=== PATIENT | male | born 1995 | race Caucasian/White ===

== ENCOUNTER 2021-11-09 17:38 | Emergency (ER) | payer OTHER ==
[2021-11-09 18:23] LABS: Absolute Lymphocytes (CBC) 0.8 K/uL (0.7-4.9); Hematocrit 44.9 % (39.6-49.0); Lymphocytes % 7.9 % (15.3-44.8); MCV 86.8 fL (80-100); MPV 8.4 fL (7.6-11.3); RBC Red Blood Cell Count 5.17 M/uL (4.33-5.43)
[2021-11-09 18:31] LABS: Albumin 4.1 g/dL (3.4-5.0); Bilirubin Total 0.5 mg/dL (0.2-1.0); Potassium 3.3 mmol/L (3.5-5.1); Protein, Total 7.4 g/dL (6.4-8.2)
[2021-11-09] MEDS ORDERED: ONDANSETRON 4 MG/2 ML VIAL ONE (18:34)
[2021-11-09] MEDS ORDERED: KETOROLAC 30 MG/ML INJ ONE ×2 (18:34→20:06)
[2021-11-09 19:04] LABS: Urine Blood 3+ (Negative); Urine Glucose Negative (Negative); Urine Protein 1+ (Negative); Urine pH 5.5 (5.0-7.0)
--- NOTE | 2021-11-09 19:17 | RAD REPORT ---
EXAM DESCRIPTION: CT - Abdomen Pelvis Wo Contrast - 11/09/2021 7:03 pm CLINICAL HISTORY: Abdominal pain COMPARISON: None TECHNIQUE: Computed axial tomography of the abdomen and pelvis was obtained. IV and oral contrast we re not requested. All CT scans are performed using dose optimization technique as appropriate and may include automated exposure control or mA/KV adjustment according to patient size. FINDINGS: The evaluation of solid organs, vessels and bowel is limited secondary to the lack of con trast administration. Tiny bilateral renal calculi. Mild right hydronephrosis with perirenal stranding. A 4 millimeter calc ulus distal right ureter near the UVJ. The liver, spleen, pancreas and adrenals unremarkable. There is no evidence of diverticulitis. IMPRESSION: 4 millimeter calculus distal right ureter resulting in mild right hydronephrosis
--- NOTE | 2021-11-09 19:58 | ER ---
Nurse's Notes [facility] Name: Thanh Sauceda Age: 26 yrs Sex: Male : 1995 Arrival Date: 11/09/2021 Time: 17:44 Bed 8 Private MD: Diagnosis: Kidney stone;Right flank pain;Emesis;Hydronephrosis with renal and ureteral calculous obstruction-4 mm distal right urter, mild hydro Presentation: 11/09 17:57 Chief complaint: Patient states: Right flank pain, N/V x 1 day. Coronavirus screen: At [facility] this time, the client does not indicate any symptoms associated with coronavirus-19. Ebola Screen: No symptoms or risks identified at this time. Initial Sepsis Screen: Does the patient meet any 2 criteria? No. Patient's initial sepsis screen is negative. Does the patient have a suspected source of infection? No. Patient's initial sepsis screen is negative. Risk Assessment: Do you want to hurt yourself or someone else? Patient reports no desire to harm self or others. Onset of symptoms was November 08, 2021. Care prior to arrival: None. 17:57 Method Of Arrival: Ambulatory [facility] 17:57 Acuity: CALEB 3 jl7 Triage Assessment: 17:59 General: Appears in no apparent distress. uncomfortable, Behavior is calm, cooperative, jl7 appropriate for age. Pain: Complains of pain in right flank Pain radiates to right lower quadrant Pain currently is 5 out of 10 on a pain scale. GI: Reports nausea, vomiting. Historical: - Allergies: 17:59 No Known Allergies; [facility] - Home Meds: 17:59 None [Active]; jl7 - PMHx: 17:59 ADD/ADHD; 7 - PSHx: 17:59 Appendectomy; jl7 - Immunization history:: Client reports receiving the 2nd dose of the Covid vaccine. - Social history:: Smoking status: Patient denies any tobacco usage or history of. Screenin:06 Abuse screen: Denies threats or abuse. Denies injuries from another. eh3 18:06 Nutritional screening: No deficits noted. Tuberculosis screening: No symptoms or risk eh3 factors identified. Fall Risk None identified. Assessment: 18:07 GI: Abdomen is flat, non-distended, Reports lower abdominal pain, nausea, Pain is 5 out eh3 of 10 on a pain scale. Vital Signs: 17:57 BP 102 / 80; Pulse 110; Resp 17; Temp 98.4; Pulse Ox 96% on R/A; Weight 74.84 kg; jl7 Height 5 ft. 9 in. (175.26 cm); Pain 5/10; 18:42 BP 119 / 66; Pulse 88; Resp 12; Pulse Ox 98% on R/A; Pain 4/10; eh3 19:37 BP 123 / 83; Pulse 92; Resp 12; Pulse Ox 98% on R/A; Pain 0/10; eh3 17:57 Body Mass Index 24.37 (74.84 kg, 175.26 cm) jl7 ED Course: 17:44 Patient arrived in ED. am2 17:45 Maciej Frankel DO is Attending Physician. ms3 17:58 Triage completed. jl7 17:59 Arm band placed on right wrist. jl7 18:03 Initial lab(s) drawn, by nc, sent to lab. Inserted saline lock: 20 gauge in right dh3 forearm, using aseptic technique. Blood collected. 18:06 Patient has correct armband on for positive identification. Bed in low position. Call 3 light in reach. Side rails up X2. 18:38 Chely Alvarez, ABNER is Primary Nurse. ld1 19:03 Attending Physician role handed off by Maciej Frankel DO ms3 19:03 Vick Marte MD is Attending Physician. ms3 19:05 CT Abd/Pelvis - Without Contrast In Process Unspecified. EDMS 19:57 Piotr Braga MD is Referral Physician. ted 21:01 No provider procedures requiring assistance completed. IV discontinued, intact, eh3 bleeding controlled, No redness/swelling at site. Pressure dressing applied. Administered Medications: 18:41 Drug: Ketorolac 10 mg Route: IVP; Site: right antecubital; eh3 18:41 Drug: Zofran (Ondansetron) 4 mg Route: IVP; Site: right antecubital; eh3 20:09 Drug: NS 0.9% 1000 ml Route: IV; Rate: 1 bolus; Site: right wrist; ld1 20:09 Drug: Rocephin (cefTRIAXone) 1 grams Route: IV; Rate: per protocol; Site: right wrist; ld1 20:09 Drug: TORadol - (ketorolac) 15 mg Route: IVP; Site: right wrist; ld1 20:09 Drug: Flomax (tamsulosin) 0.4 mg Route: PO; ld1 Medication: 21:11 VIS not applicable for this client. 3 Outcome: 19:58 Discharge ordered by . ted 21:01 Discharged to home ambulatory. 3 21:01 Condition: stable 21:01 Discharge instructions given to patient, family, Instructed on discharge instructions, follow up and referral plans. medication usage, Demonstrated understanding of instructions, follow-up care, medications, Prescriptions given X 4. 21:12 Patient left the ED. 3 Signatures: Dispatcher [employer] EDMS Vick Marte MD MD cha Leal, Jahala RN RN jl7 Madeleine Lynn Deanna 3 Maciej Frankel DO DO ms3 Chely Alvarez RN RN ld1 Kaylan Hermosillo 3 Corrections: (The following items were deleted from the chart) 17:59 17:59 Allergies: Aspirin; magdalena nichols
--- NOTE | 2021-11-09 19:58 | EDPHYS ---
Physician Documentation [facility] Name: Thanh Sauceda Age: 26 yrs Sex: Male : 1995 Arrival Date: 11/09/2021 Time: 17:44 Bed 8 Private MD: ED Physician Vick Marte HPI: 11/09 18:19 This 26 yrs old Male presents to ER via Ambulatory with complaints of Flank Pain, ms3 Nausea/Vomiting. 18:19 The patient complains of pain in the right mid back. The pain does not radiate. Onset: ms3 The symptoms/episode began/occurred acutely, yesterday. Modifying factors: The symptoms are alleviated by nothing. the symptoms are aggravated by nothing. Associated signs and symptoms: The patient has no apparent associated signs or symptoms. Severity of pain: At its worst the pain was moderate in the emergency department the pain is unchanged. Historical: - Allergies: 17:59 No Known Allergies; jl7 - Home Meds: 17:59 None [Active]; jl7 - PMHx: 17:59 ADD/ADHD; jl7 - PSHx: 17:59 Appendectomy; jl7 - Immunization history:: Client reports receiving the 2nd dose of the Covid vaccine. - Social history:: Smoking status: Patient denies any tobacco usage or history of. ROS: 18:19 Constitutional: Negative for fever, and chills. ENT: Negative for injury, pain, and ms3 discharge, Neck: Negative for injury, pain, and swelling, Cardiovascular: Negative for chest pain, and palpitations. Respiratory: Negative for shortness of breath, cough, wheezing, and pleuritic chest pain. 18:19 Neuro: Negative for headache, weakness, numbness, tingling. Psych: Negative for depression, anxiety, suicide ideation, homicidal ideation, and hallucinations. 18:19 Abdomen/GI: Positive for Right flank pain. Exam: 18:19 Constitutional: This is a well developed, well nourished patient who is awake, alert, ms3 and in no acute distress. Eyes: Pupils equal round and reactive to light, extra-ocular motions intact. Lids and lashes normal. Conjunctiva and sclera are non-icteric and not injected. Periorbital areas with no swelling, redness, or edema. Neck: Trachea midline, no cervical lymphadenopathy. Supple, full range of motion without nuchal rigidity, or vertebral point tenderness. No Meningismus. Chest/axilla: Normal chest wall appearance and motion. Nontender with no deformity. Cardiovascular: Regular rate and rhythm with a normal S1 and S2. No gallops, murmurs, or rubs. Normal PMI, no JVD. No pulse deficits. Respiratory: Lungs have equal breath sounds bilaterally, clear to auscultation and percussion. No rales, rhonchi or wheezes noted. No increased work of breathing, no retractions or nasal flaring. Abdomen/GI: Soft, non-tender, with normal bowel sounds. No distension or tympany. No guarding or rebound. No evidence of tenderness throughout. Skin: Warm, dry with normal turgor. Normal color with no rashes, no lesions, and no evidence of cellulitis. MS/ Extremity: Pulses equal, no cyanosis. Neurovascular intact. Full, normal range of motion. Psych: Awake, alert, with orientation to person, place and time. Behavior, mood, and affect are within normal limits. 18:19 Back: CVA tenderness, that is moderate, is noted on the right. Vital Signs: 17:57 BP 102 / 80; Pulse 110; Resp 17; Temp 98.4; Pulse Ox 96% on R/A; Weight 74.84 kg; jl7 Height 5 ft. 9 in. (175.26 cm); Pain 5/10; 18:42 BP 119 / 66; Pulse 88; Resp 12; Pulse Ox 98% on R/A; Pain 4/10; eh3 19:37 BP 123 / 83; Pulse 92; Resp 12; Pulse Ox 98% on R/A; Pain 0/10; eh3 17:57 Body Mass Index 24.37 (74.84 kg, 175.26 cm) jl7 MDM: 18:07 Patient medically screened. ms3 19:02 Transition of care: After a detail discussion of the patient's case, care is ms3 transferred to Vick Marte MD. 19:55 Differential diagnosis: nephrolithiasis, UTI. Data reviewed: vital signs, nurses notes, ted lab test result(s), radiologic studies, CT scan. Data interpreted: surveillance system monitor: rate is 92 beats/min, rhythm is regular, Pulse oximetry: on room air is 98 %. Counseling: I had a detailed discussion with the patient and/or guardian regarding: the historical points, exam findings, and any diagnostic results supporting the discharge/admit diagnosis, lab results, radiology results. 11/09 18:04 Order name: CBC with Diff; Complete Time: 18:40 ld1 11/09 18:04 Order name: CMP; Complete Time: 18:40 ld1 11/09 18:04 Order name: Lipase; Complete Time: 18:40 ld1 11/09 18:07 Order name: CT Abd/Pelvis - Without Contrast; Complete Time: 19:53 ms3 11/09 19:05 Order name: Urine Dipstick-Ancillary; Complete Time: 19:53 EDMS 11/09 18:04 Order name: IV Saline Lock; Complete Time: 18:05 ld1 11/09 18:04 Order name: Labs collected and sent; Complete Time: 18:05 ld1 11/09 18:04 Order name: Urine Dipstick-Ancillary (obtain specimen); Complete Time: 18:43 ld1 Administered Medications: 18:41 Drug: Ketorolac 10 mg Route: IVP; Site: right antecubital; eh3 18:41 Drug: Zofran (Ondansetron) 4 mg Route: IVP; Site: right antecubital; eh3 20:09 Drug: NS 0.9% 1000 ml Route: IV; Rate: 1 bolus; Site: right wrist; ld1 20:09 Drug: Rocephin (cefTRIAXone) 1 grams Route: IV; Rate: per protocol; Site: right wrist; ld1 20:09 Drug: TORadol - (ketorolac) 15 mg Route: IVP; Site: right wrist; ld1 20:09 Drug: Flomax (tamsulosin) 0.4 mg Route: PO; ld1 Disposition Summary: 11/09/21 19:58 Discharge Ordered Location: Home ted Problem: new ted Symptoms: are unchanged ted Condition: Stable ted Diagnosis - Kidney stone ted - Right flank pain ted - Emesis ted - Hydronephrosis with renal and ureteral calculous obstruction - 4 mm distal right ted urter, mild hydro Followup: ms3 - With: - When: 2 - 3 days - Reason: Re-evaluation by your physician Followup: ld1 - With: Private Physician - When: 2 - 3 days - Reason: Recheck today's complaints, Continuance of care, Re-evaluation by your physician Discharge Instructions: - Discharge Summary Sheet ms3 - Kidney Stones ms3 Forms: - Medication Reconciliation Form ted - Thank You Letter ted - Antibiotic Education [facility] - Prescription Opioid Use [facility] Prescriptions: - Tylenol-Codeine #3 300 mg-30 mg Oral - take 2 tablets by ORAL route every 6 hours; 24 tablet; Refills: 0, Product [facility] Selection Permitted - Zofran 4 mg Oral Tablet - take 1 tablet by ORAL route every 12 hours As needed; 20 tablet; Refills: 0, [facility] Product Selection Permitted - Cipro 500 mg Oral Tablet - take 1 tablet by ORAL route every 12 hours for 7 days; 14 tablet; Refills: 0, [facility] Product Selection Permitted - Flomax 0.4 mg Oral capsule - take 1 capsule by ORAL route once daily 1/2 hour following the same meal each [facility] day; 30 capsule; Refills: 0, Product Selection Permitted Signatures: Dispatcher [employer] Vick Dupree MD MD cha Leal, Jahala RN RN jl7 Maciej Frankel DO DO ms3 Chely Alvarez RN RN ld1 Kaylan Hermosillo 3 Corrections: (The following items were deleted from the chart) 17:59 17:59 Allergies: Aspirin; magdalena nichols
[2021-11-09] MEDS ORDERED: TAMSULOSIN 0.4 MG SR CAP ONE (20:06)
[2021-11-09] MEDS ORDERED: NA CHLORIDE 0.9% 1,000 ML ONE (20:06)
[2021-11-09] MEDS ORDERED: CEFTRIAXONE 1000 MG/VIAL ONE (20:07)
[2021-11-09 21:50] VITALS: TEMP 98.4
[2021-11-09 21:52] VITALS: O2SAT 98
[2021-11-09 21:53] VITALS: BP 123/83
== END 2021-11-09 21:12 | disposition home or self-care (01) ==
LOC: ER 17:38
DX: N13.2 Hydronephrosis with renal and ureteral calculous obstruction (principal); R11.10 Vomiting, unspecified
CPT/HCPCS: 85025; 36415; 81003; 83690; 80053; 74176; J7030; J2405

== ENCOUNTER 2022-07-14 16:02 | Emergency (ER) | payer OTHER ==
[2022-07-14 17:10] LABS: Hematocrit 42.2 % (39.6-49.0); Lymphocytes % 25.1 % (15.3-44.8); MCV 87.4 fL (80-100); MPV 7.9 fL (7.6-11.3); RBC Red Blood Cell Count 4.83 M/uL (4.33-5.43)
[2022-07-14 17:29] LABS: Albumin 4.2 g/dL (3.4-5.0); Bilirubin Total 0.4 mg/dL (0.2-1.0); Potassium 3.8 mmol/L (3.5-5.1)
[2022-07-14 18:19] LABS: Urine Blood Negative (Negative); Urine Glucose Negative (Negative); Urine Protein Negative (Negative); Urine Specific Gravity >=1.030 (1.005-1.030); Urine pH 5.5 (5.0-7.0)
--- NOTE | 2022-07-14 18:33 | RAD REPORT ---
EXAM DESCRIPTION: CTAbdomen Pelvis W Contrast - 07/14/2022 6:28 pm CLINICAL HISTORY: Abdominal pain. EPIGASTRIC PAIN COMPARISON: No comparisons TECHNIQUE: Biphasic CT imaging of the abdomen and pelvis was performed with 100 ml non-ionic IV cont rast. All CT scans are performed using dose optimization technique as appropriate and may include automated exposure control or mA/KV adjustment according to patient size. FINDINGS: The lung bases are clear. The liver, spleen, pancreas, adrenal glands and kidneys are within normal limits. Small calculus infe rior calyx right kidney. No bowel obstruction, free air, free fluid or abscess. Moderate retained stool throughout the colon. Nonvisualized appendix. No evidence of significant lymphadenopathy. No suspicious bony findings. IMPRESSION: Moderate stool retained throughout the colon. Small right renal calculus without hydronephrosis.
[2022-07-14 20:43] VITALS: TEMP 97.1
[2022-07-14 20:44] VITALS: BP 122/81; O2SAT 99
--- NOTE | 2022-07-26 17:04 | EDPHYS ---
Physician Documentation [facility] Name: Thanh Sauceda Age: 26 yrs Sex: Male : 1995 Arrival Date: 07/14/2022 Time: 16:03 Bed 11 Private MD: ED Physician Teddy Patricio HPI: 07/14 16:37 This 26 yrs old Male presents to ER via Ambulatory with complaints of Abdominal Pain. jmm 16:37 The patient presents with abdominal pain. Onset: The symptoms/episode began/occurred jmm gradually. Onset: The symptoms/episode began/occurred 1 day(s) ago. The symptoms do not radiate. Is a 26-year-old male with history of ADHD, kidney stones the presents emerged part with complaints of epigastric abdominal pain nausea. Patient is concerned he may have an obstruction. Denies fever, denies diarrhea.. Historical: - PMHx: 16:42 ADD/ADHD; Kidney stone; kr3 - PSHx: 16:42 Appendectomy; kr3 - Immunization history:: Adult Immunizations not up to date. - Social history:: Smoking status: Patient denies any tobacco usage or history of. ROS: 16:37 Constitutional: Negative for fever, chills, and weight loss, Cardiovascular: Negative jmm for chest pain, palpitations, and edema, Respiratory: Negative for shortness of breath, cough, wheezing, and pleuritic chest pain. 16:37 Abdomen/GI: Positive for abdominal pain. 16:37 All other systems are negative. Exam: 16:37 Constitutional: This is a well developed, well nourished patient who is awake, alert, jmm and in no acute distress. Head/Face: atraumatic. Eyes: EOMI, no conjunctival erythema appreciated ENT: Moist Mucus Membranes Neck: Trachea midline, Supple Chest/axilla: Normal chest wall appearance and motion. Cardiovascular: Regular rate and rhythm. No edema appreciated Respiratory: Normal respirations, no respiratory distress appreciated Abdomen/GI: Non distended Back: Normal ROM Skin: General appearance color normal MS/ Extremity: Moves all extremities, no obvious deformities appreciated, no edema noted to the lower extremities Neuro: Awake and alert Psych: Behavior is normal, Mood is normal, Patient is cooperative and pleasant Vital Signs: 16:39 BP 114 / 75; Pulse 78; Resp 17; Temp 97.1; Pulse Ox 98% on R/A; Weight 74.84 kg; Height kr3 5 ft. 10 in. ; Pain 3/10; 18:08 BP 122 / 81; Pulse 74; Resp 17; Pulse Ox 99% ; mb9 16:39 Body Mass Index 23.67 (74.84 kg, 177.8 cm) kr3 16:39 Pain Scale: Adult kr3 MDM: 16:37 Patient medically screened. [facility] 19:15 Differential diagnosis: diverticulitis, gastroesophageal reflux disease, non-specific jmm abd pain, pancreatitis, Peptic Ulcer Disease. Data reviewed: vital signs, nurses notes. I considered the following discharge prescriptions or medication management in the emergency department Medications were administered in the Emergency Department. See MAR. I considered the following discharge prescriptions or medication management in the emergency department. Counseling: I had a detailed discussion with the patient and/or guardian regarding: the historical points, exam findings, and any diagnostic results supporting the discharge/admit diagnosis, lab results, radiology results, the need for outpatient follow up, to return to the emergency department if symptoms worsen or persist or if there are any questions or concerns that arise at home. 07/14 16:51 Order name: CBC with Diff; Complete Time: 17:15 [facility] 07/14 16:51 Order name: CMP; Complete Time: 17:32 [facility] 07/14 16:51 Order name: Lipase; Complete Time: 17:32 [facility] 07/14 18:19 Order name: Urine Dipstick-Ancillary; Complete Time: 18:20 [facility] 07/14 16:51 Order name: CT Abd/Pelvis - IV Contrast Only; Complete Time: 18:46 [facility] 07/14 16:51 Order name: IV Saline Lock; Complete Time: 17:06 [facility] 07/14 16:51 Order name: Labs collected and sent; Complete Time: 17:06 [facility] 07/14 17:14 Order name: Urine Dipstick-Ancillary (obtain specimen); Complete Time: 18:19 [facility] Administered Medications: No medications were administered Disposition Summary: 07/14/22 19:17 Discharge Ordered Location: Home [facility] Condition: Stable [facility] Diagnosis - Epigastric pain [facility] Followup: [facility] - With: Private Physician - When: 2 - 3 days - Reason: Recheck today's complaints, Continuance of care, Re-evaluation by your physician Followup: jmm - With: Phuc Kwan MD - When: 2 - 3 days - Reason: Recheck today's complaints, Continuance of care, Re-evaluation by your physician Discharge Instructions: - Discharge Summary Sheet jm - Abdominal Pain, Adult jm Forms: - Medication Reconciliation Form [facility] - Thank You Letter angie - Antibiotic Education [facility] - Prescription Opioid Use [facility] Addendum: 07/19/2022 08:02 Co-signature as Attending Physician, Teddy Patricio MD I reviewed the patient's care r t provided by the Advanced Practice Provider and agree with the diagnosis and treatment plan. Signatures: Dispatcher [employer] EDMS Abner Faulkner PA PA jmm Reid, Kelley RN RN kr3 Teddy Patricio MD MD rt Corrections: (The following items were deleted from the chart) 07/14 16:43 16:42 PSHx: kidney stones; kr3 kr3
--- NOTE | 2022-07-26 17:04 | ER ---
Nurse's Notes [facility] Name: Thanh Sauceda Age: 26 yrs Sex: Male : 1995 Arrival Date: 07/14/2022 Time: 16:03 Bed 11 Private MD: Diagnosis: Epigastric pain Presentation: 07/14 16:39 Chief complaint: Patient states: abdominal pain that feels like it rolls and then a kr3 really sharp pain, denies N/V/D, took laxative thinking I was constipated but it did not give me relief. Coronavirus screen: Vaccine status: Patient reports receiving the 2nd dose of the covid vaccine. Ebola Screen: Patient denies travel to an Ebola-affected area in the 21 days before illness onset. Initial Sepsis Screen: Does the patient meet any 2 criteria? No. Patient's initial sepsis screen is negative. Does the patient have a suspected source of infection? No. Patient's initial sepsis screen is negative. Risk Assessment: Do you want to hurt yourself or someone else? Patient reports no desire to harm self or others. Onset of symptoms was July 13, 2022. 16:39 Method Of Arrival: Ambulatory kr3 16:39 Acuity: CALEB 3 kr3 Triage Assessment: 16:43 General: Appears in no apparent distress. comfortable, Behavior is calm, cooperative, kr3 appropriate for age. Pain: Complains of pain in abdomen. EENT: No deficits noted. Neuro: Level of Consciousness is awake, alert, obeys commands, Oriented to person, place, time, situation. Cardiovascular: No deficits noted. Respiratory: No deficits noted. GI: Reports cramping. : No signs and/or symptoms were reported regarding the genitourinary system. Derm: No signs and/or symptoms reported regarding the dermatologic system. Musculoskeletal: No signs and/or symptoms reported regarding the musculoskeletal system. Historical: - PMHx: 16:42 ADD/ADHD; Kidney stone; kr3 - PSHx: 16:42 Appendectomy; kr3 - Immunization history:: Adult Immunizations not up to date. - Social history:: Smoking status: Patient denies any tobacco usage or history of. Screenin:07 [facility] ED Fall Risk Assessment (Adult) History of falling in the last 3 months, mb9 including since admission No falls in past 3 months (0 pts) Confusion or Disorientation No (0 pts) Intoxicated or Sedated No (0 pts) Impaired Gait No (0 pts) Mobility Assist Device Used No (0 pt) Altered Elimination No (0 pt) Score/Fall Risk Level 0 - 2 = Low Risk Oriented to surroundings, Maintained a safe environment, Educated pt \T\ family on fall prevention, incl call for assistance when getting out of bed. Abuse screen: Denies threats or abuse. Nutritional screening: No deficits noted. Tuberculosis screening: No symptoms or risk factors identified. Assessment: 17:07 General: Appears in no apparent distress. comfortable, Behavior is calm, cooperative, mb9 appropriate for age. Pain: Complains of pain in abdomen Pain currently is 8 out of 10 on a pain scale. Quality of pain is described as throbbing, Aggravated by eating. Neuro: Level of Consciousness is awake, alert, obeys commands, Oriented to person, place, time, situation, Appropriate for age. Cardiovascular: Capillary refill < 3 seconds is brisk Rhythm is regular. Respiratory: Airway is patent Respiratory effort is even, unlabored, Respiratory pattern is regular, symmetrical. GI: Abdomen is round non-distended, Bowel sounds present X 4 quads. Abd is soft and non tender X 4 quads. Patient currently denies diarrhea, nausea. Derm: Skin is pink, warm \T\ dry. Musculoskeletal: Range of motion: intact in all extremities. 18:08 Reassessment: No changes from previously documented assessment. Patient and/or family mb9 updated on plan of care and expected duration. Pain level reassessed. Patient is alert, oriented x 3, equal unlabored respirations, skin warm/dry/pink. 18:26 Reassessment: pt taken to CT via wheelchair. mb9 19:52 Reassessment: Patient is alert, oriented x 3, equal unlabored respirations, skin bb warm/dry/pink. pt verbalized understanding of and agrees to plan of care discharge instructions given pt ambulated with steady gait to exit. Vital Signs: 16:39 BP 114 / 75; Pulse 78; Resp 17; Temp 97.1; Pulse Ox 98% on R/A; Weight 74.84 kg; Height kr3 5 ft. 10 in. ; Pain 3/10; 18:08 BP 122 / 81; Pulse 74; Resp 17; Pulse Ox 99% ; mb9 16:39 Body Mass Index 23.67 (74.84 kg, 177.8 cm) kr3 16:39 Pain Scale: Adult kr3 ED Course: 16:03 Patient arrived in ED. am2 16:21 Abner Faulkner PA is PHCP. jmm 16:21 Teddy Patricio MD is Attending Physician. jmm 16:42 Triage completed. kr3 16:44 Arm band placed on right wrist. kr3 16:57 Bonny Sandoval, RN is Primary Nurse. mb9 17:06 Placed in gown. Bed in low position. Call light in reach. Side rails up X 1. Client mb9 placed on continuous cardiac and pulse oximetry monitoring. NIBP monitoring applied. 17:06 CBC with Diff Sent. mb9 17:06 CMP Sent. mb9 17:06 Lipase Sent. mb9 17:06 No provider procedures requiring assistance completed. Inserted saline lock: 20 gauge mb9 in right antecubital area, using aseptic technique. Blood collected. 18:29 CT Abd/Pelvis - IV Contrast Only In Process Unspecified. EDMS 19:16 Phuc Kwan MD is Referral Physician. m 19:53 IV discontinued, intact, bleeding controlled, No redness/swelling at site. Pressure bb dressing applied. Administered Medications: No medications were administered Medication: 17:06 VIS not applicable for this client. mb9 Outcome: 19:17 Discharge ordered by . m 19:53 Discharged to home ambulatory. bb 19:53 Condition: stable 19:53 Discharge instructions given to patient, Instructed on discharge instructions, follow up and referral plans. Demonstrated understanding of instructions, follow-up care. 19:53 Patient left the ED. bb Signatures: Dispatcher [employer] EDMS Abner Faulkner PA PA jmm Ballard, Brenda, RN RN Madeleine Napoles am2 Ivania Leon RN RN [email or web address] Bonny Sandoval, RN RN [email or web address] Corrections: (The following items were deleted from the chart) 16:43 16:42 PSHx: kidney stones; kr3 kr3
== END 2022-07-14 19:53 | disposition home or self-care (01) ==
LOC: ER 16:02
DX: R10.13 Epigastric pain (principal); Z87.442 Personal history of urinary calculi
CPT/HCPCS: 85025; 36415; 81003; 83690; 80053; 74177; 99283; Q9967

== ENCOUNTER 2024-12-18 16:54 | Emergency (ER) | payer OTHER ==
[2024-12-18] MEDS ORDERED: IBUPROFEN 400 MG TAB ONE (17:18)
[2024-12-18] MEDS ORDERED: ACETAMINOPHEN 500 MG TAB ONE (17:18)
[2024-12-18] MEDS ORDERED: LIDOCAINE 2% INJ, 20 mL 20 ML ONE (17:19)
[2024-12-18] MEDS ORDERED: TDAP (DIPHTH,PERTUSS(ACELL),TET VAC) 0.5 ML VIAL IMVAC ONE (17:29)
[2024-12-18] MEDS ORDERED: LIDOCAINE 2% W/EPI 1:200,000 MPF 20 ML VIAL IM ONE (18:35)
--- NOTE | 2024-12-18 18:56 | RAD REPORT ---
Exam:Knee Left 3 View HISTORY: Left knee pain FINDINGS: No fracture or dislocation seen Laceration involves the anterior inferior aspect of the knee. If clinically indicated MRI could be ob tained to assess for patellar tendon injury.
--- NOTE | 2024-12-18 19:07 | ER ---
Nurse's Notes [facility] Name: Thanh Sauceda Age: 29 yrs Sex: Male : 1995 Arrival Date: 12/18/2024 Time: 16:54 Bed 11 Private MD: Diagnosis: Laceration without foreign body of knee-left Presentation: 12/18 16:59 Chief complaint: Patient states: C/O laceration to left knee. Patient states he fell on ar8 asphalt \R\20 minutes ago. Coronavirus screen: At this time, the client does not indicate any symptoms associated with coronavirus-19. Ebola Screen: No symptoms or risks identified at this time. Initial Sepsis Screen: Does the patient meet any 2 criteria? No. Patient's initial sepsis screen is negative. Does the patient have a suspected source of infection? No. Patient's initial sepsis screen is negative. Risk Assessment: Do you want to hurt yourself or someone else? Patient reports no desire to harm self or others. Onset of symptoms was December 18, 2024 at 16:45. 16:59 Method Of Arrival: Wheelchair ar8 16:59 Acuity: CALEB 3 ar8 Triage Assessment: 17:01 General: Appears in no apparent distress. Behavior is calm, cooperative. Pain: ar8 Complains of pain in left knee. Musculoskeletal: Reports pain in left knee. Injury Description: Laceration sustained to left knee is jagged, not bleeding, was sustained less than 30 minutes ago. a small amount of bleeding noted at this time. Historical: - Allergies: 17:01 No Known Allergies; ar8 - Home Meds: 17:01 None [Active]; ar8 - PMHx: 17:01 ADD/ADHD; Kidney stone; ar8 - PSHx: 17:01 Appendectomy; ar8 - Immunization history:: Last tetanus immunization: unknown. - Infectious Disease History:: Denies. - Social history:: Smoking status: Patient denies any tobacco usage or history of. Screenin:42 Abuse screen: Denies threats or abuse. Denies injuries from another. Nutritional ss screening: No deficits noted. Tuberculosis screening: Never had TB. Assessment: 17:42 General: Appears in no apparent distress. comfortable, Behavior is calm, cooperative, ss Denies fever, feeling ill. Pain: Complains of pain in left knee Pain currently is 2 out of 10 on a pain scale. Quality of pain is described as tender. Neuro: Level of Consciousness is awake, alert, obeys commands, Oriented to person, place, time, situation, Speech is normal, Facial symmetry appears normal. Respiratory: Airway is patent Respiratory effort is even, labored, Respiratory pattern is regular, symmetrical. GI: No signs and/or symptoms were reported involving the gastrointestinal system. Derm: Skin is intact, is healthy with good turgor, Skin is pink, warm \T\ dry. normal. Injury Description: Laceration sustained to left knee is clean, 0.5 to 2.5 cm long, was sustained 30-60 minutes ago. no active bleeding noted at this time. 18:42 Reassessment: Patient appears in no apparent distress at this time. Patient is alert, ss oriented x 3, equal unlabored respirations, skin warm/dry/pink. CLEMENT Hickman at bedside for laceration repair. Vital Signs: 16:59 BP 126 / 89; Pulse 82; Resp 18; Temp 97.4; Pulse Ox 97% ; Weight 74.84 kg; Height 5 ft. ar8 9 in. ; Pain 4/10; 16:59 Body Mass Index 24.37 (74.84 kg, 175.26 cm) ar8 16:59 Pain Scale: Adult ar8 ED Course: 16:57 Patient arrived in ED. im 17:01 Triage completed. ar8 17:01 Arm band placed on right wrist. ar8 17:02 Vick Summers PA is PHCP. cp 17:02 Deysi Flores MD is Attending Physician. cp 17:38 Candy Goodson, ABNER is Primary Nurse. ss 17:42 Patient has correct armband on for positive identification. Bed in low position. Call ss light in reach. 17:42 Wound care: to laceration located on left knee was cleaned with soap and water, Patient ss tolerated well. 18:31 XRAY Knee LEFT 3 view In Process Unspecified. EDMS 18:43 Assist provider with laceration repair on left knee that was 2.5 cm. or less using ss sutures. Set up tray. Performed by Vick VAUGHAN Patient tolerated well. Patient did not have IV access during this emergency room visit. Administered Medications: 17:38 Drug: Boostrix Tdap IM 0.5 ml IM once; as a single dose {Note: 37R35 02/22/27.} Route: ss IM; Site: left deltoid; 18:42 Follow up: Response: No adverse reaction ss 17:41 Drug: Ibuprofen PO 800 mg PO once Route: PO; ss 18:42 Follow up: Response: No adverse reaction ss 17:41 Drug: Acetaminophen PO 1000 mg PO once Route: PO; ss 18:42 Follow up: Response: No adverse reaction ss 18:42 Not Given (Other Intervention Used): lidocaine(2 %) 10 ml 5 ml Infiltration once; with ss epinephrine 18:42 Drug: Lidocaine-Epinephrine Infiltration -2 % (1:100,000) 10 ml Infiltration once; to bedside {Note: to L knee by CLEMENT Edwards.} Route: Infiltration; 19:44 Drug: Cephalexin PO 500 mg PO once Route: PO; br2 19:52 Follow up: Response: Medication administered at discharge. br2 Medication: 17:42 Vaccine Information Statement (VIS) provided today. Questions and/or concerns ss addressed. VIS edition date: December 2020. Outcome: 19:07 Discharge ordered by . benito 19:52 Discharged to home ambulatory, br2 19:52 Condition: stable 19:52 Discharge instructions given to patient, Instructed on discharge instructions, follow up and referral plans. Demonstrated understanding of instructions, follow-up care, medications, Prescriptions given X 2, 19:53 Patient left the ED. br2 Signatures: Dispatcher [employer] EDMS Candy Goodson RN RN ss Page, Corey, PA-C PAAndrewC Lynn Haywood Belinda, RN RN br2 Augustin Brantley RN RN ar8
--- NOTE | 2024-12-18 19:07 | EDPHYS ---
Physician Documentation [facility] Name: Thanh Sauceda Age: 29 yrs Sex: Male : 1995 Arrival Date: 12/18/2024 Time: 16:54 Bed 11 Private MD: ED Physician Deysi Flores HPI: 12/18 17:25 This 29 yrs old Male presents to ER via Wheelchair with complaints of Knee Injury. cp Historical: - Allergies: 17:01 No Known Allergies; ar8 - Home Meds: 17:01 None [Active]; ar8 - PMHx: 17:01 ADD/ADHD; Kidney stone; ar8 - PSHx: 17:01 Appendectomy; ar8 - Immunization history:: Last tetanus immunization: unknown. - Infectious Disease History:: Denies. - Social history:: Smoking status: Patient denies any tobacco usage or history of. ROS: 17:30 MS/extremity: Positive for laceration, pain, tenderness, of the anterior aspect left cp knee below patella, 17:30 Constitutional: Negative for body aches, chills, fever, cp 17:30 Neck: Negative for pain with movement, pain at rest, 17:30 Cardiovascular: Negative for chest pain, 17:30 Respiratory: Negative for cough, shortness of breath, wheezing, 17:30 Abdomen/GI: Negative for abdominal pain, vomiting, diarrhea, constipation, 17:30 Back: Negative for pain at rest, pain with movement, 17:30 Neuro: Negative for headache, numbness, weakness, 17:30 All other systems are negative, Exam: 17:35 Constitutional: The patient appears in no acute distress, alert, awake, cp non-diaphoretic, non-toxic, well developed, well nourished, 17:35 Head/Face: Normocephalic, atraumatic. cp 17:35 Neck: ROM/movement: is normal, is supple, without pain, no range of motions limitations, 17:35 Chest/axilla: Inspection: normal, 17:35 Cardiovascular: Rate: normal, 17:35 Respiratory: the patient does not display signs of respiratory distress, Respirations: normal, no use of accessory muscles, no retractions, 17:35 Abdomen/GI: Inspection: abdomen appears normal, 17:35 Back: pain, is absent, ROM is normal, 17:35 Musculoskeletal/extremity: Extremities: noted in the left knee: laceration anterior left knee below patella, mild bleeding, tendon sheath exposed with no signs injury, full AROM left knee, Vital Signs: 16:59 BP 126 / 89; Pulse 82; Resp 18; Temp 97.4; Pulse Ox 97% ; Weight 74.84 kg; Height 5 ft. ar8 9 in. ; Pain 4/10; 16:59 Body Mass Index 24.37 (74.84 kg, 175.26 cm) ar8 16:59 Pain Scale: Adult ar8 Laceration: 19:05 Wound Repair of 4.5cm ( 1.8in ) subcutaneous laceration to anterior left knee. Linear cp shaped.. Distal neuro/vascular/tendon intact. Anesthesia: Wound infiltrated with 8 mls of 2% lidocaine. Wound prep: Moderate cleansing by me, Wound irrigation by me. Skin closed with 1 4-0 Prolene using running sutures. Dressed with Bacitracin, 4x4's. Patient tolerated well. MDM: 17:16 Medical Screening Exam initiated 18:00 Differential diagnosis: dislocation, open fracture, contusion, tendon rupture. 18:31 Independent interpretation of the following test(s) in the Emergency Department X-Ray: My interpretation is images of left knee negative for fracture. 19:06 Data reviewed: vital signs, nurses notes, radiologic studies, plain films, and as a cp result, I will discharge patient. 19:07 I considered the following discharge prescriptions or medication management in the emergency department Medications were administered in the Emergency Department. See MAR. 19:07 Counseling: I had a detailed discussion with the patient and/or guardian regarding the historical points, exam findings, and any diagnostic results supporting the discharge/admit diagnosis, radiology results, to return to the emergency department if symptoms worsen or persist or if there are any questions or concerns that arise at home. Response to treatment: the patient's symptoms have markedly improved after treatment, and as a result, I will discharge patient. 12/18 17:20 Order name: XRAY Knee LEFT 3 view; Complete Time: 19:04 cp 12/18 19:04 Interpretation: Report reviewed. 12/18 17:20 Order name: Gloves, Sterile; Complete Time: 17:41 12/18 17:20 Order name: Setup Suture Tray; Complete Time: 17:41 cp Administered Medications: 17:38 Drug: Boostrix Tdap IM 0.5 ml IM once; as a single dose {Note: 37R35 02/22/27.} Route: ss IM; Site: left deltoid; 18:42 Follow up: Response: No adverse reaction ss 17:41 Drug: Ibuprofen PO 800 mg PO once Route: PO; ss 18:42 Follow up: Response: No adverse reaction ss 17:41 Drug: Acetaminophen PO 1000 mg PO once Route: PO; ss 18:42 Follow up: Response: No adverse reaction ss 18:42 Not Given (Other Intervention Used): lidocaine(2 %) 10 ml 5 ml Infiltration once; with ss epinephrine 18:42 Drug: Lidocaine-Epinephrine Infiltration -2 % (1:100,000) 10 ml Infiltration once; to ss bedside {Note: to L knee by PA. Grace} Route: Infiltration; 19:44 Drug: Cephalexin PO 500 mg PO once Route: PO; br2 19:52 Follow up: Response: Medication administered at discharge. br2 Disposition: 12/19 18:14 Chart complete. cp Disposition Summary: 12/18/24 19:07 Discharge Ordered Notes: Location: Home cp Problem: new cp Symptoms: have improved cp Condition: Stable cp Diagnosis - Laceration without foreign body of knee - left cp Followup: cp - With: Private Physician - When: 10 - 14 days - Reason: Staple/Suture removal Discharge Instructions: - Discharge Summary Sheet cp - Laceration Care, Adult cp - Form - Excuse from Work, School, or Physical Activity dd2 Forms: - Medication Reconciliation Form cp - Antibiotic Education cp - Prescription Opioid Use cp - Patient Portal Instructions cp - Leadership Thank You Letter cp - Work release form br2 Prescriptions: - Cephalexin 500 mg Oral Capsule - take 1 capsule ORAL route every 8 hours for 10 days; 30 capsule; Refills: 0, cp Product Selection Permitted - Ibuprofen 800 mg Oral Tablet - take 1 tablet ORAL route every 8 hours As needed take with food; 30 tablet; cp Refills: 0, Product Selection Permitted Signatures: Dispatcher [employer] Candy Mcgowan RN RN Vick Milian PA-C PA-C cp Riddle, Belinda, RN RN br2 Augustin Brantley RN RN ar8 Corrections: (The following items were deleted from the chart) 18:10 16:05 MS/extremity: Positive for laceration, pain, tenderness, of the anterior aspect cp left knee below patella, cp
[2024-12-18] MEDS ORDERED: CEPHALEXIN 250 MG CAP ONE (19:20)
[2024-12-19 03:24] VITALS: BP 126/89; TEMP 97.4; O2SAT 97
== END 2024-12-18 19:53 | disposition home or self-care (01) ==
LOC: ER 16:54
DX: S81.012A Laceration without foreign body, left knee, initial encounter (principal); Z23 Encounter for immunization
CPT/HCPCS: 90715; 96372; 99284